=== PATIENT | female | born 1995 | race American Indian/Alaskan Native ===

== ENCOUNTER 2023-10-29 13:32 | Emergency (ER) | payer MEDICAID ==
[~2023-10-29] VITALS: Ht 188 cm; Wt 99.5 kg
[2023-10-29 13:36] VITALS: TEMP 98
[2023-10-29] MEDS ORDERED: predniSONE 50 MG,predniSONE 10 MG PO ONE (14:00)
[2023-10-29] MEDS ORDERED: Albuterol 0.083% Neb Soln 2.5 MG/3 ML UD IH ONE (14:00)
[2023-10-29] MEDS ORDERED: PROAIR HFA0.09 MG/AC IH (15:00)
[2023-10-29] MEDS ORDERED: PREDNISONE20 MG PO (15:00)
[2023-10-29 15:01] VITALS: BP 120/76; PULSE 97
== END 2023-10-29 15:08 | disposition home or self-care (01) ==
LOC: COL.ER 13:32
DX: O99.512 Diseases of the respiratory system complicating pregnancy, second trimester (principal); J45.901 Unspecified asthma with (acute) exacerbation; Z79.899 Other long term (current) drug therapy; Z3A.17 17 weeks gestation of pregnancy
CPT/HCPCS: J7512

== ENCOUNTER 2023-11-12 02:09 | Emergency (ER) | payer MEDICAID ==
[~2023-11-12] VITALS: Ht 188 cm; Wt 99.5 kg
[~2023-11-12 02:09] MED LIST: PREDNISONE20 MG PO; PROAIR HFA0.09 MG/AC IH
[2023-11-12 02:11] VITALS: BP 123/84; TEMP 98.2
[2023-11-12] MEDS ORDERED: EPIPEN 2-PAK1 MG/ML IM (03:18)
[2023-11-12 03:33] VITALS: PULSE 64
== END 2023-11-12 03:33 | disposition home or self-care (01) ==
LOC: COL.ER 02:09
DX: O99.512 Diseases of the respiratory system complicating pregnancy, second trimester (principal); J30.81 Allergic rhinitis due to animal (cat) (dog) hair and dander; Z3A.19 19 weeks gestation of pregnancy